=== PATIENT | female | born 1985 | race Caucasian/White ===

== ENCOUNTER 2018-04-20 10:00 | Emergency (ER) | payer MEDICAID ==
[~2018-04-20] VITALS: Ht 165.1 cm; Wt 80.0 kg
[2018-04-20 10:14] VITALS: BP 118/58
[2018-04-20] MEDS ORDERED: KETOROLAC 60MG/2ML VIAL IM ONE (12:15)
== END 2018-04-20 13:52 | disposition home or self-care (01) ==
LOC: ER 10:00
DX: M25.511 Pain in right shoulder (principal); Y93.72 Activity, wrestling; Y92.89 Other specified places as the place of occurrence of the external cause; F17.210 Nicotine dependence, cigarettes, uncomplicated; Z88.5 Allergy status to narcotic agent
CPT/HCPCS: 73030; 81025; 96372; 99284; J1885

== ENCOUNTER 2018-10-09 10:03 | Emergency (ER) | payer MEDICAID ==
[~2018-10-09] VITALS: Ht 165.1 cm; Wt 80.5 kg
[2018-10-09 11:00] LABS: CLARITY URINE CLEAR (CLEAR); COLOR URINE YELLOW (YELLOW); KETONES URINE NEGATIVE (NEGATIVE); LEUKOCYTE ESTERASE URINE NEGATIVE (NEGATIVE); NITRITE URINE NEGATIVE (NEGATIVE); OCCULT BLOOD URINE 1+ (NEGATIVE); PROTEIN URINE NEGATIVE (NEGATIVE); SPECIFIC GRAVITY URINE 1.026 (1.005-1.030)
[2018-10-09 12:20] LABS: BASOPHILS % 0.8 % (0.0-2.0); EOSINOPHILS % 11.3 % (0.0-5.0); HEMATOCRIT. 40.3 % (36.0-48.0); HEMOGLOBIN. 13.6 g/dL (12.0-16.0); LYMPHOCYTES % 23.6 % (20.0-50.0); MEAN PLATELET VOLUME 7.2 fl (7.4-10.4); MONOCYTES % 6.8 % (2.0-8.0); NEUTROPHILS % 57.5 % (40.0-76.0); PLATELET 189 x1000/uL (130-400); RED BLOOD CELL COUNT 4.38 mill/uL (4.2-5.4); RED CELL DISTRIBUTION WIDTH 13.1 % (11.6-14.6)
[2018-10-09 12:23] LABS: CHLORIDE 108 mEq/L (98-107)
[2018-10-09] MEDS ORDERED: VISCOUS LIDOCAINE 2% 15 ML UDC PO STA (12:40)
[2018-10-09] MEDS ORDERED: MAGNESIUM/ALUMINUM HYDROXIDE/SIMETHICONE 30ML UDC PO ONE (12:45)
[2018-10-09 13:24] VITALS: BP 110/58
== END 2018-10-09 13:56 | disposition home or self-care (01) ==
LOC: ER 10:21
DX: R10.13 Epigastric pain (principal); R11.2 Nausea with vomiting, unspecified; F17.200 Nicotine dependence, unspecified, uncomplicated; F32.9 Major depressive disorder, single episode, unspecified; Z98.890 Other specified postprocedural states; Z88.6 Allergy status to analgesic agent
CPT/HCPCS: 36415; 76705; 81025; 99284

== ENCOUNTER 2020-08-09 12:57 | Emergency (ER) | payer MEDICAID ==
[~2020-08-09] VITALS: Ht 177.8 cm; Wt 80.0 kg
[2020-08-09] MEDS ORDERED: LORAZEPAM 2MG/ML CPJ IV ONE (13:15)
[2020-08-09 13:46] LABS: CLARITY URINE CLOUDY (CLEAR); COLOR URINE ORANGE (YELLOW); KETONES URINE TRACE (NEGATIVE); LEUKOCYTE ESTERASE URINE 1+ (NEGATIVE); NITRITE URINE NEGATIVE (NEGATIVE); OCCULT BLOOD URINE TRACE (NEGATIVE); PROTEIN URINE 1+ (NEGATIVE); SPECIFIC GRAVITY URINE 1.023 (1.005-1.030)
[2020-08-09 14:09] LABS: *AMPHETAMINES SCREEN URINE NEGATIVE (NEGATIVE); *BARBITURATES SCREEN URINE NEGATIVE (NEGATIVE); *BENZODIAZEPINES SCREEN URINE NEGATIVE (NEGATIVE); *COCAINE SCREEN URINE NEGATIVE (NEGATIVE); METHADONE URINE SCREEN NEGATIVE (NEGATIVE)
[2020-08-09 14:10] LABS: CANNABINOID URINE SCREEN NEGATIVE (NEGATIVE); OPIATES URINE SCREEN NEGATIVE (NEGATIVE); PHENCYCLIDINE URINE SCREEN NEGATIVE (NEGATIVE)
[2020-08-09] MEDS ORDERED: NITROFURANTOIN 100MG M/M CAPSULE PO ONE (14:15)
[2020-08-09 14:30] LABS: BASOPHILS % 0.4 % (0.0-2.0); EOSINOPHILS % 0.8 % (0.0-5.0); HEMATOCRIT. 41.8 % (36.0-48.0); HEMOGLOBIN. 14.7 g/dL (12.0-16.0); LYMPHOCYTES % 13.7 % (20.0-50.0); MEAN CORPUSCULAR VOLUME 91.1 fL (81.0-99.0); MEAN PLATELET VOLUME 6.8 fl (7.4-10.4); MONOCYTES % 8.3 % (2.0-8.0); NEUTROPHILS % 76.8 % (40.0-76.0); PLATELET 235 x1000/uL (130-400); RED BLOOD CELL COUNT 4.59 mill/uL (4.2-5.4); RED CELL DISTRIBUTION WIDTH 13.6 % (11.6-14.6)
[2020-08-09] MEDS ORDERED: LORAZEPAM 1MG TABLET PO ONE (14:30)
[2020-08-09 14:39] LABS: CHLORIDE 94 mEq/L (98-107)
[2020-08-09 14:43] LABS: ETHANOL BLOOD < 10 mg/dL
[2020-08-09] MEDS ORDERED: POTASSIUM CHLORIDE 20MEQ TABLET SR PO ONE (15:00)
[2020-08-09 17:00] VITALS: BP 148/99
== END 2020-08-09 17:09 | disposition home or self-care (01) ==
LOC: ER 13:13
DX: N39.0 Urinary tract infection, site not specified (principal); R07.89 Other chest pain; I10 Essential (primary) hypertension; F32.9 Major depressive disorder, single episode, unspecified; J45.909 Unspecified asthma, uncomplicated; Z98.890 Other specified postprocedural states; Z88.5 Allergy status to narcotic agent
CPT/HCPCS: 36415; 71045; 80053; 80305; 80320; 81003; 81025; 83605; 83880; 84484; 85025; 93005; 99285; G0480